=== PATIENT | female | born 1970 | race Asian ===

== ENCOUNTER 2020-10-03 13:59 | Emergency (ER) | payer BC ==
[~2020-10-03] VITALS: Ht 165.1 cm; Wt 59.0 kg
[2020-10-03] MEDS ORDERED: HYDROCHLOROTH12.5 MG (14:20)
[2020-10-03] MEDS ORDERED: COZAAR50 MG (14:20)
[2020-10-03] MEDS ORDERED: NEURONTIN300 MG (14:21)
[2020-10-03] MEDS ORDERED: PEPCID AC20 MG PO (17:05)
[2020-10-03] MEDS ORDERED: ASA81 MG PO (17:05)
== END 2020-10-03 17:10 | disposition home or self-care (01) ==
LOC: ER 13:59
DX: R07.89 Other chest pain (principal)